=== PATIENT | male | born 1970 | race Caucasian/White ===

== ENCOUNTER 2016-05-06 00:52 | Emergency (ER) | payer OTHER ==
[~2016-05-06] VITALS: Ht 175.3 cm; Wt 133.8 kg
[~2016-05-06 00:52] MED LIST: EPIPEN 2-PAK1 MG/ML IM; IBUPROFEN800 M1 PO; PERCOCET 5-3251 EACH PO; PREDNISONE 10MG10 M1 PO
--- NOTE | 2016-05-06 01:16 | ED GENERAL ADULT ---
History of Present Illness General Chief Complaint: Cardiopulmonary Resuscitation Stated Complaint: CARDIOPULONARY ARREST Source: family, EMS Exam Limitations: clinical condition Vital Signs & Intake/Output Vital Signs & Intake/Output Vital Signs Date Time Temp Pulse Resp B/P Pulse O2 O2 Flow FiO2 Ox Delivery Rate 05/06 0141 180/100 05/06 0138 88 100% 05/06 0100 110 16 110/64 88 100% (DELFINA YBARRA,BUD Beauchamp) Allergies Coded Allergies: bee venom protein (honey bee) (Severe, ANAPHYLAXIS 05/06/16) Reconcile Medications Epinephrine (Epipen 2-Farhad Auto-Injector) 1 MG/ML KIT 0.3 mg IM PRN ANAPHYLAXIS Ibuprofen 800 MG TABLET 1 TAB PO Q8H PRN pain Oxycodone HCl/Acetaminophen (Percocet 5-325 MG Tablet) 5 MG-325 MG TABLET 1 TAB PO Q6H PRN PAIN Prednisone 10 MG TAB 3 TAB PO BID ALLERGIC REACTION Triage Nurses Notes Reviewed? yes HPI: Patient was complaining of heartburn this evening and went to lay down. Patient then got up to go get Tums but he collapsed on his way to the bathroom. His , who is an ER nurse, began CPR. Upon BLS arrival patient had a shockable rhythm and he was shocked 3 times. Upon vascular nurse arrival patient was in V. fib and was defibrillated 2 additional times. Patient then had return of spontaneous circulation. Patient had a very difficult airway and he was unable to be intubated in the field. Patient has grunting respirations and was brought in for evaluation. Patient was given a total of 2 1 mg IV pushes of epinephrine as well as 150 mg of amiodarone. Past History Travel History Traveled to [place] past 21 day No Medical History Any Pertinent Medical History? see below for history Neurological: NONE EENT: NONE Cardiovascular: NONE Respiratory: NONE Gastrointestinal: NONE Hepatic: NONE Renal: NONE Musculoskeletal: NONE Psychiatric: depression Endocrine: NONE Surgical History Surgical History: non-contributory Psychosocial History What is your primary language Lithuanian Tobacco Use: Cognitive Impairment Family History Hx Contributory? No Review of Systems Review of Systems Constitutional: Reports: see HPI. Physical Exam Physical Exam General Appearance: severe distress Head: atraumatic Eyes: Bilateral: PERRL. Ears, Nose, Throat: VOMITUS IN HIS AIRWAY Neck: normal inspection, supple, full range of motion Respiratory: rhonchi (SCATTERED), respiratory distress Cardiovascular: regular rate/rhythm, normal peripheral pulses Gastrointestinal: normal bowel sounds, soft Back: normal inspection Extremities: normal inspection, normal capillary refill, no edema Neurologic/Psych: GRUNTING RESPIRATIONS AND NOT FOLLOWING COMMANDS Core Measures ACS in differential dx? Yes ASA ordered for poss ACS? Yes-ordered CVA/TIA Diagnosis: No Severe Sepsis Present: No Septic Shock Present: No Progress Differential Diagnoses I considered the following diagnoses in my evaluation of the patient: [POST VFIB ARREST WITH ROSC AND ACUTE INFERIOR LATERAL [place]] Plan of Care: Orders Procedure Date/time Status TROPONIN LEVEL 05/07 55 Active PARTIAL THROMBOPLASTIN TIME 05/07 55 Active PROTHROMBIN TIME 05/07 55 Active COMPREHENSIVE METABOLIC PANEL 05/07 55 Active CBC WITHOUT DIFFERENTIAL 05/07 55 Active EKG 05/06 54 Active Laboratory Tests 05/06/16 0101: Sodium Pending, Potassium Pending, Chloride Pending, Carbon Dioxide Pending, Anion Gap Pending, BUN Pending, Creatinine Pending, BUN/Creatinine Ratio Pending , Glucose Pending, Calcium Pending, Total Bilirubin Pending, AST Pending, ALT Pending, Alkaline Phosphatase Pending, Troponin I Pending, Total Protein Pending , Albumin Pending, Globulin Pending, Albumin/Globulin Ratio Pending, PT Pending, INR Pending, APTT Pending, CBC w Diff MAN DIFF ORDERED, WBC Pending, RBC Pending , Hgb Pending, Hct Pending, MCV Pending, MCH Pending, RDW Pending, Plt Count Pending, MPV Pending, Gran % Pending, Lymphocytes % Pending, Monocytes % Pending , Eosinophils % Pending, Basophils % Pending, Absolute Granulocytes Pending, Segmented Neutrophils Pending, Absolute Lymphocytes Pending, Absolute Monocytes Pending, Absolute Eosinophils Pending, Absolute Basophils Pending, PUBS MCHC Pending Initial ED EKG: ACUTE INFERIOR LATERAL mi Comments: Patient paralyzed and intubated with an 8.0 ET tube. Good equal breath sounds and good color change. CALLED [facility] OPERATOR AND SHE HAD NO IDEA WHAT TO DO. [facility] CALLED, D/W DR. COVARRUBIAS, FINANCIAL SYSTEMS ANALYST OPENED AND PT TRANSFERED. Departure Departure Disposition: OTHER GENERAL HOSPITAL (ACUTE) Condition: Critical Clinical Impression Primary Impression: AMI (acute myocardial infarction) Qualifiers: Myocardial infarction ST status: ST elevation myocardial infarction Involved coronary artery: unspecified coronary artery Qualified Code: I21.3 - ST elevation (STEMI) myocardial infarction of unspecified site Secondary Impressions: Cardiac arrest Referrals: RYNE MOON MD (PCP/Family) Departure Forms: General Discharge Information Procedures Intubation Time of Intubation: 010 Intubation Method: orotracheal Tube Size (cm): 8.0 Medications: succinylcholine, ETOMIDATE Breath Sounds After Intubation: equal Intubation Complications: no complications Critical Care Note Critical Care Note Critical Care Time: mins: (30 MIN)
[2016-05-06 01:37] LABS: ABSOLUTE BASOPHIL COUNT 0.1 /CUMM (0.0-0.2); ABSOLUTE EOSINOPHIL COUNT 0.5 /CUMM (0.0-0.7); ABSOLUTE GRANULOCYTE CT 14.6 /CUMM (1.4-6.5); ABSOLUTE LYMPH COUNT 12.6 /CUMM (1.2-3.4); ABSOLUTE MONOCYTE COUNT 1.3 /CUMM (0.10-0.60); BASOPHIL % 0.3 % (0.0-2.0); EOSINOPHIL % 1.8 % (0-5); GRANULOCYTE % 50.1 % (42.2-75.2); HEMATOCRIT 49.2 % (42-52); MEAN CORPUSCULAR HGB 31.3 PG (27.0-31.0); MEAN CORPUSCULAR HGB CONC 33.3 G/DL (33.0-37.0); MEAN CORPUSCULAR VOLUME 93.8 FL (80.0-94.0); MEAN PLATELET VOLUME 9.5 FL (7.4-10.4); PLATELET COUNT 286 /CUMM (130-400); RBC DISTRIBUTION WIDTH 13.5 % (11.5-14.5); RED BLOOD CELL CT 5.24 /CUMM (4.70-6.10); WHITE BLOOD CELL COUNT 29.2 /CUMM (4.8-10.8)
[2016-05-06 01:41] VITALS: BP 180/100
[2016-05-06 01:45] LABS: PT 10.6 SEC (9.4-12.5); PTT 41 SEC (25-37)
== END 2016-05-06 02:33 | disposition short-term general hospital (02) ==
LOC: ERH 00:52
PROVIDERS: Physician Assistant
DX: I21.3 ST elevation (STEMI) myocardial infarction of unspecified site (principal); I46.9 Cardiac arrest, cause unspecified
CPT/HCPCS: 1387; 93005; 93010; 94799; 96374; 96375; 99291; J1644

== ENCOUNTER 2017-09-19 18:11 | Emergency (ER) | payer OTHER ==
[~2017-09-19] VITALS: Ht 175.3 cm; Wt 102.1 kg
[~2017-09-19 18:11] MED LIST changes: +ATORVASTATIN CA80 M1 PO; +BRILINTA90 M1 PO; +CHILDREN'S ASPI81 M1 PO; +EPINEPHRIN0.3 MG/0.1 IM; +FAMOTIDINE20 M1 PO; +LISINOPRIL2.5 M1 PO; +METOPROLOL SUCC25 M1 PO
--- NOTE | 2017-09-19 19:06 | ED GENERAL ADULT ---
History of Present Illness General Chief Complaint: General Adult Stated Complaint: PT FEELS LIKE CHEST PRESSURE, Source: patient, family, old records Exam Limitations: no limitations Vital Signs & Intake/Output Vital Signs & Intake/Output Vital Signs Date Time Temp Pulse Resp B/P B/P Pulse O2 O2 Flow FiO2 Mean Ox Delivery Rate 09/193 98.2 65 20 134/71 09/19 2028 97.7 64 20 119/63 09/19 1823 99.0 97 18 131/69 96 Room Air ED Intake and Output 09/20 0000 09/19 1200 Intake Total 0 Output Total Balance 0 Intake, Oral 0 Patient 225 lb Weight Weight Reported by Patient Measurement Method Allergies Coded Allergies: bee venom protein (honey bee) (Severe, ANAPHYLAXIS 09/29/16) Reconcile Medications Aspirin (Children's Aspirin) 81 MG TAB.CHEW 1 TAB PO DAILY HEART/BLOOD ( Reported) Atorvastatin Calcium 80 MG TABLET 1 TAB PO QPM CHOLESTEROL (Reported) Epinephrine 0.3 MG/0.3 ML AUTO.INJCT 0.3 MG IM AD PRN ALLERGIC REACTION ( Reported) Famotidine 20 MG TABLET 1 TAB PO BID GI (Reported) Lisinopril 2.5 MG TABLET 1 TAB PO DAILY BP (Reported) Metoprolol Succinate 25 MG TAB 1 TAB PO DAILY HEART/BP (Reported) Ticagrelor (Brilinta) 90 MG TABLET 1 TAB PO BID BLOOD THINNER (Reported) Triage Note: PT FROM HOME C/O CHEST PRESSURE THAT BEGAN 1 HR PRIOR. PT STATES HE WAS AT THE GYM WHEN HE FELT "LIKE I NEEDED TO SWALLOW BUT I COULDNT", CHEST PRESSURE INTERMITTENTLY, HX OF CARDIAC ARREST WITH 1 STENT PLACED. S/S OF CARDIAC ARREST ARE THE SAME S/S TODAY. PT DENIES SOB, ARM NUMBNESS/TINGLING, BACK OR JAW PAIN. PT A&0X3. PT DENIES EATING ANY SPICY FOODS YESTERDAY OR TODAY. AFTER THE ONSET OF THE CP AT THE GYM PT WENT TO [place] WHERE HE BECAME LIGHTHEADED AND DIZZY. Triage Nurses Notes Reviewed? yes HPI: This is a 47-year-old male presenting to the emergency department with chest pressure. Of note the patient has a history of coronary artery disease which was complicated by an acute STEMI in April 2016. The patient suffered a cardiac arrest while at home, achieved return of spontaneous circulation in the field following defibrillation and ACLS, was transferred to [place] and underwent emergent left heart cath which demonstrated a 95% proximal left circumflex lesion. The patient had one bare-metal stent placed to the left circumflex artery, had good response. At the time of his left heart cath [place], the patient was noted also to have mild disease to the LAD and mild disease to a dominant RCA. His left ventricular ejection fraction at that time was 25%, however on subsequent echocardiograms, he is noted to have a "normal EF." Today the patient presents with retrosternal chest pressure and "a lump in my throat" after exercising at the gym. Patient states that he was brandishing weights at the gym, which he does 4 times a week. He was not doing any particularly cardiovascularly demanding exercise but was rather working on his chest, states that the pressure-like sensation is mild in intensity, nonradiating, gradually improving, not changed with position or activity. He subsequently went shopping for stamps, felt "a little lightheaded" and asked his to bring him to the emergency department for evaluation. Patient states that this is a similar feeling to when he had his cardiac arrest in April 2016. He denies any shortness of breath, diaphoresis, nausea or vomiting. He has had no recent injury, illness, travel. He has had no swelling in his legs. He states that he has been compliant with all medications. Of note, the patient was DC'd from his statin about 1 week ago after complaining of muscle aches and pains. Since that time, he has not been restarted on any anti-hyperlipidemic. (Marek Flores MD) Past History Travel History Traveled to [place] past 21 day No Medical History Any Pertinent Medical History? see below for history Neurological: NONE EENT: NONE Cardiovascular: NC WITH CARDIAC ARREST APRIL 2016 1 CARDIAC STENT Respiratory: NONE Gastrointestinal: NONE Hepatic: NONE Renal: NONE Musculoskeletal: NONE Psychiatric: NONE Endocrine: NONE Blood Disorders: NONE Cancer(s): NONE LEAD ELECTRICAL CONTROLS ENGINEER/Reproductive: NONE Surgical History Surgical History: non-contributory Psychosocial History What is your primary language Thai Tobacco Use: Quit >30 days ago Family History Hx Contributory? No (Marek Flores MD) Review of Systems Review of Systems Constitutional: Reports: malaise. EENTM: Reports: no symptoms. Respiratory: Reports: no symptoms. Denies: cough, hemoptysis, orthopnea, short of breath, sputum production, stridor, wheezing. Cardiovascular: Reports: see HPI. Denies: edema, orthopena, palpitations, peripheral edema, syncope. GI: Reports: see HPI. Genitourinary: Reports: no symptoms. Musculoskeletal: Reports: muscle pain. Skin: Reports: no symptoms. Neurological/Psychological: Reports: no symptoms. Hematologic/Endocrine: Reports: no symptoms. Immunologic/Allergic: Reports: no symptoms. Comments Patient notes that he has had chronic pain to the right shoulder, reproducible when he palpates, not related to activity level. He denies any skin changes or precipitating trauma. (Marek Flores MD) Physical Exam Physical Exam General Appearance: well developed/nourished, no apparent distress, alert, comfortable Head: atraumatic, normal appearance Eyes: Bilateral: normal appearance, PERRL, EOMI. Ears, Nose, Throat: normal pharynx, normal ENT inspection Neck: normal inspection, supple, full range of motion Respiratory: normal breath sounds, chest non-tender, no respiratory distress, lungs clear Cardiovascular: regular rate/rhythm, normal peripheral pulses Gastrointestinal: soft, non-tender Rectal: deferred Back: normal inspection, normal range of motion Extremities: normal inspection, normal capillary refill, normal range of motion, no edema Neurologic/Psych: no motor/sensory deficits, awake, alert, oriented x 3, normal gait, normal mood/affect Skin: intact, normal color, warm/dry Core Measures ACS in differential dx? Yes CVA/TIA Diagnosis: No Sepsis Present: No Sepsis Focused Exam Completed? No (Marek Flores MD) Progress Differential Diagnoses I considered the following diagnoses in my evaluation of the patient: Given the patient's history and his description of his symptoms, presentation is very concerning for unstable angina or some other more severe form of acute coronary syndrome. Could also be GERD. Low suspicion for pneumonia, pulmonary embolism, thoracic aortic disease. Doubt esophageal rupture. Low suspicion also for metabolic derangement or occult infectious process. Plan of Care: Orders Procedure Date/time Status TROPONIN LEVEL 09/19 2132 Complete TROPONIN LEVEL 09/19 1818 Complete COMPREHENSIVE METABOLIC PANEL 09/19 1818 Complete CBC WITHOUT DIFFERENTIAL 09/19 1818 Complete EKG 09/20 1811 Active Laboratory Tests 09/19/17 2152: Troponin I < 0.01 09/19/17 1904: Anion Gap 8, Estimated GFR > 60, BUN/Creatinine Ratio 12.2, Glucose 91, Calcium 9.5, Total Bilirubin 0.5, AST 23, ALT 28, Alkaline Phosphatase 57, Troponin I < 0.01, Total Protein 6.6, Albumin 4.3, Globulin 2.3, Albumin/Globulin Ratio 1.9, CBC w Diff NO MAN DIFF REQ, RBC 4.07 L, MCV 91.8, MCH 31.1 H, MCHC 33.9, RDW 13.1, MPV 8.6, Gran % 64.4, Lymphocytes % 27.0, Monocytes % 6.9, Eosinophils % 1.1, Basophils % 0.6, Absolute Granulocytes 4.4, Absolute Lymphocytes 1.8, Absolute Monocytes 0.5, Absolute Eosinophils 0.1, Absolute Basophils 0 Plan for labs, troponin 2, chest x-ray, EKG. Will offer patient telemetry admission. Pain does not recur, but rather resolves shortly after patient arrives in the emergency department. He has negative troponin 2. Labs are significant only for very mild anemia. On reassessment, he is very well-appearing. Given his significant past medical history, patient is offered telemetry admission for further monitoring overnight and possible cardiology consultation in the morning. However, patient declines this offer. He expresses understanding of the fact that we have not ruled out the possibility of unstable angina, and he is therefore advised to avoid any demanding activity until he follows up his primary doctor and/or alternative financing specialist. He is given specific return precautions and follow-up instructions. He voices understanding of these, as is his . Initial ED EKG: normal axis, normal intervals, normal p-waves, normal QRS complex, normal sinus rhythm, no ST T wave changes (Marek Flores MD) Departure Departure Time of Disposition: 2257 Disposition: HOME OR SELF CARE Condition: Stable Clinical Impression Primary Impression: Chest pressure Referrals: Greg YBARRA,Duy Payne (PCP/Family) Additional Instructions: Thank you for coming to [facility] this evening. Although it does not appear that you had a heart attack, we did not rule out every possible dangerous cause of chest pain, nor did we rule out the possibility of unstable angina, which is a true medical emergency and would possibly require intervention by a alternative financing specialist. As we discussed, it is extremely important that you follow-up with your alternative financing specialist as soon as possible. In the interim, please follow-up with your primary doctor on Thursday. As we discussed, do not engage in any aerobically or anaerobically demanding activity until you are cleared by your alternative financing specialist. Please continue taking all medications as prescribed. Please return to the emergency department immediately if you have any recurrence of chest pain or pressure, shortness of breath, nausea, or sweats or any other concerning symptoms. Departure Forms: Customer Survey General Discharge Information (Marek Flores MD) PA/STEAMTABLE ATTENDANT RAILROAD Co-Sign Statement Statement: ED Attending supervision documentation- [] I saw and evaluated the patient. I have also reviewed all the pertinent lab results and diagnostic results. I agree with the findings and the plan of care as documented in the PA's/STEAMTABLE ATTENDANT RAILROAD's documentation. [] I have reviewed the ED Record and agree with the PA's/STEAMTABLE ATTENDANT RAILROAD's documentation. [] Additions or exceptions (if any) to the PAs/STEAMTABLE ATTENDANT RAILROAD's note and plan are summarized below: [] Resident Co-Sign Statement Statement: ED Attending supervision documentation- [] I saw and evaluated the patient. I have also reviewed all the pertinent lab results and diagnostic results. I agree with the findings and the plan of care as documented in the Resident's documentation. [x] I have reviewed the ED Record and agree with the Resident's documentation. [] Additions or exceptions (if any) to the Resident's note and plan are summarized below: [] (Nacho Jefferson DO) Critical Care Note Critical Care Note Critical Care Time: non-applicable (Marek Flores MD)
[2017-09-19 19:11] LABS: ABSOLUTE BASOPHIL COUNT 0 /CUMM (0.0-0.2); ABSOLUTE EOSINOPHIL COUNT 0.1 /CUMM (0.0-0.7); ABSOLUTE GRANULOCYTE CT 4.4 /CUMM (1.4-6.5); ABSOLUTE LYMPH COUNT 1.8 /CUMM (1.2-3.4); ABSOLUTE MONOCYTE COUNT 0.5 /CUMM (0.10-0.60); BASOPHIL % 0.6 % (0.0-2.0); EOSINOPHIL % 1.1 % (0-5); GRANULOCYTE % 64.4 % (42.2-75.2); HEMATOCRIT 37.4 % (42-52); MEAN CORPUSCULAR HGB 31.1 PG (27.0-31.0); MEAN CORPUSCULAR HGB CONC 33.9 G/DL (33.0-37.0); MEAN CORPUSCULAR VOLUME 91.8 FL (80.0-94.0); MEAN PLATELET VOLUME 8.6 FL (7.4-10.4); PLATELET COUNT 232 /CUMM (130-400); RBC DISTRIBUTION WIDTH 13.1 % (11.5-14.5); RED BLOOD CELL CT 4.07 /CUMM (4.70-6.10); WHITE BLOOD CELL COUNT 6.8 /CUMM (4.8-10.8)
--- NOTE | 2017-09-19 19:33 | RADIOLOGY REPORT ---
EXAMINATION: XR CHEST CLINICAL INFORMATION: Chest pressure. COMPARISON: Chest radiograph dated 09/29/2016. TECHNIQUE: 2 views of the chest were obtained. FINDINGS: No significant abnormality is noted involving the heart, lungs, mediastinum, bony thorax or soft tissues. IMPRESSION: Unremarkable examination.
[2017-09-19 22:33] VITALS: BP 134/71
== END 2017-09-19 23:06 ==
LOC: ERH 18:11
PROVIDERS: Physician Assistant Medical
DX: R07.89 Other chest pain (principal)
CPT/HCPCS: 71046; 93005; 93010; J3490